=== PATIENT | male | born 1955 | race Caucasian/White ===

== ENCOUNTER 2024-07-10 16:26 | Inpatient (IN) | payer OTHER ==
[2024-07-10 17:07] VITALS: BMI 18.4
[2024-07-10] MEDS ORDERED: BISMUTH SUBSALICYLATE 524 MG/30 ML PO PRN (17:17)
[2024-07-10] MEDS ORDERED: NALOXONE (NARCAN) HCL 4 MG/0.1 ML SPRAY NS PRN (17:17)
[2024-07-10] MEDS ORDERED: ACETAMINOPHEN 325 MG TABLET (FP) PO PRN (17:17)
[2024-07-10] MEDS ORDERED: NICOTINE POLACRILEX 2 MG GUM BUC PRN (17:17)
[2024-07-10] MEDS ORDERED: ONDANSETRON *ODT* 4 MG TABLET SL PRN (17:17)
[2024-07-10] MEDS ORDERED: guaiFENesin 600 MG TABLET.ER (FP) PO PRN (17:17)
[2024-07-10] MEDS ORDERED: LOPERAMIDE HCL 2 MG CAPSULE PO PRN (17:17)
[2024-07-10] MEDS ORDERED: NICOTINE POLACRILEX 2 MG LOZENGE BC PRN (17:17)
[2024-07-10] MEDS ORDERED: BENZONATATE 200 MG CAPSULE PO PRN (17:17)
[2024-07-10] MEDS ORDERED: POLYETHYLENE GLYCOL (HEALTHYLAX) 3350 17 GM PACKET PO PRN (17:17)
[2024-07-10] MEDS ORDERED: P-EPHED 60MG/TRIPROLIDI 2.5MG TABLET PO PRN (17:17)
[2024-07-10] MEDS ORDERED: IBUPROFEN 400 MG TABLET (FP) PO PRN (17:17)
[2024-07-10] MEDS ORDERED: methaDONE HCL 10 MG TABLET (FOR DETOX USE ONLY) PO PRN (17:20)
[2024-07-10] MEDS: IBUPROFEN 600 MG TABLET (FP) PO PRN (19:25)
[2024-07-10] MEDS: methaDONE HCL 10 MG TABLET (FOR DETOX USE ONLY) PO ONE (19:26)
[2024-07-10] MEDS: THIAMINE 100 MG TABLET PO SCH (22:27)
[2024-07-10] MEDS: MELATONIN 5 MG TABLETS PO SCH (22:27)
[2024-07-11] MEDS: PRENATAL VITAMINS W/ FOLIC ACID TABLET (FP) PO SCH (10:17)
[2024-07-11 12:27] LABS: HEMATOCRIT 35.4 % (35.4-49); HEMOGLOBIN 11.1 GM/dL (11.7-16.9); MCH 25.4 pg (25.7-33.7); MCHC 31.4 g/dl (32.0-35.9); MEAN CELL VOLUME 80.8 fl (80-96); MEAN PLT VOLUME 10.2 fl (7.5-11.1); PLATELET COUNT 96 10^3/uL (134-434); RBC 4.38 M/mm3 (4.00-5.60); RDW 17.1 % (11.9-15.9); WHITE BLOOD COUNT 4.4 K/mm3 (4.0-10.0)
[2024-07-11 12:30] LABS: POTASSIUM 3.8 mmol/L (3.5-5.1)
[2024-07-11 12:32] LABS: CALCIUM 8.6 mg/dL (8.5-10.1)
[2024-07-11 12:33] LABS: ALBUMIN 2.8 g/dl (3.4-5.0); BLOOD UREA NITROGEN 39.7 mg/dL (7-18)
[2024-07-11 12:37] LABS: CREATININE 1.3 mg/dL (0.55-1.3)
[2024-07-11 12:38] LABS: BILIRUBIN,TOTAL 0.2 mg/dL (0.2-1); TOT PROT 6.1 g/dl (6.4-8.2)
[2024-07-11] MEDS ORDERED: ALBUTEROL SO4 HFA INHALER IH ONE (22:21)
[2024-07-12] MEDS: MAG HYDROX/AL HYDROX/SIMETH 30 ML UNIT-DOSE CUP PO PRN (00:08)
[2024-07-12] MEDS: methaDONE HCL 10 MG TABLET (FOR DETOX USE ONLY) PO ONE (10:26)
[2024-07-12] MEDS: ALBUTEROL SO4 HFA INHALER IH PRN (14:55)
[2024-07-13] MEDS: BACLOFEN 10 MG TABLET (FP) PO PRN (18:26)
[2024-07-14] MEDS: methaDONE HCL 10 MG TABLET (FOR DETOX USE ONLY) PO ONE (10:15)
[2024-07-14] MEDS: BENZOCAINE/MENTHOL (CHLORASEPTIC ) LOZENGE MM PRN (13:39)
[2024-07-14] MEDS: MAGNESIUM HYDROX 2400MG/30ML ORAL SUSPENSION 30 ML CUP PO PRN (18:57)
[2024-07-15 05:56] VITALS: RESP 16
[2024-07-15] MEDS: NALOXONE (NYS OPIOID OVERDOSE PROGRAM) 4 MG/0.1 ML SPRAY NS SCH (08:55)
[2024-07-15 09:01] VITALS: BP 129/59; PULSE 78; TEMP 98.4
== END 2024-07-15 10:08 | disposition home or self-care (01) | DRG 773 ==
LOC: YASAS 16:26 → Y3N 17:51
PROVIDERS: ADMIT Allergy & Immunology; ATTEND Allergy & Immunology
PROC: HZ2ZZZZ Detoxification Services for Substance Abuse Treatment (ICD-10-PCS; principal; 2024-07-10)
DX: F11.23 Opioid dependence with withdrawal (principal); F14.20 Cocaine dependence, uncomplicated; F17.210 Nicotine dependence, cigarettes, uncomplicated; Z21 Asymptomatic human immunodeficiency virus [HIV] infection status; J45.909 Unspecified asthma, uncomplicated; Z85.46 Personal history of malignant neoplasm of prostate; Z96.0 Presence of urogenital implants
CPT/HCPCS: 0241U-QW; 36415; 80053; 80305; 80307; 85027; 86780; 93005; 93010; J0475